=== PATIENT | male | born 1965 | race Two or more races ===

== ENCOUNTER 2017-04-22 01:51 | Emergency (ER) | payer SELFPAY ==
[~2017-04-22] VITALS: Ht 160 cm; Wt 67.7 kg
[2017-04-22 01:53] VITALS: BP 149/75
[2017-04-22] MEDS ORDERED: LIDOCAINE 1%, 20ML ONE (02:16)
[2017-04-22] MEDS ORDERED: LIDOCAINE 1%, 20ML SQ ONE (02:30)
== END 2017-04-22 03:55 | disposition home or self-care (01) ==
LOC: ED 03:49
DX: S51.811A Laceration without foreign body of right forearm, initial encounter (principal); W54.0XXA Bitten by dog, initial encounter; Y93.89 Activity, other specified; Y92.009 Unspecified place in unspecified non-institutional (private) residence as the place of occurrence of the external cause; Y99.8 Other external cause status
CPT/HCPCS: 12032